=== PATIENT | female | born 1960 | race Caucasian/White ===

== ENCOUNTER 2018-11-01 12:08 | Inpatient (IN) | payer BC ==
[2018-11-01] MEDS ORDERED: NS 500 ML IV ONE (12:23)
--- NOTE | 2018-11-01 12:51 | EDPHY ---
HPI/HX/ROS/PE/MDM Narrative: CHIEF COMPLAINT: Hypotension HPI: The patient is a 58 y/o female with a history of diabetes arriving with her at the referral of her PCP and stem roller operator for evaluation of hypotension. She went to her PCP this morning due to intermittent low blood pressure issues possibly for the last year. While sitting in the waiting room she felt faint and her BP was measured at 60/47. Her PCP scheduled an appointment for her at the stem roller operator's office this afternoon, but the stem roller operator referred her directly to the ED. Her PCP and electronic prepress technician called the ED prior to patient arrival and reported their concerns for adrenal issue and recommend a cosyntropin stimulation test to evaluate for adrenal insufficiency. The patient also mentions she has heartburn pain today that is worse than normal, but she hasn't taken her omeprazole yet. She also mentions she's had occasional diarrhea over the last 2 weeks. REVIEW OF SYSTEMS: A comprehensive 10 system review of systems is otherwise negative aside from elements mentioned in the history of present illness. PMH: Diabetes, reflux - omeprazole SOCIAL HISTORY: at bedside. Lives in [place]. PCP: Dr. Jaime Núñez. PHYSICAL EXAM: General:Patient is alert, in no acute distress. BP 150/88. ENT:Eyes are normal to inspection. ENT inspection normal. Neck: Normal inspection. Full range of motion. Respiratory:No respiratory distress. Breath sounds normal bilaterally. Cardiovascular: Regular rate and rhythm. Strong peripheral pulses. Normal cap refill. Abdomen:The abdomen is nontender to palpation. There are no peritoneal signs. Back: Normal to inspection. No tenderness to palpation. Skin: Normal color. No rash. Warm and dry. Extremities: Normal appearance. Full range of motion. Neuro: Oriented x3. Normal motor function. Normal sensory function. ED Course: This is a 58 y/o female with a history of diabetes and acid reflux who presents for evaluation of hypotension. She reports similar prior episodes over the last year. Her BP has been labile here between 200, 150, and 106 systolic. Plan for IV, labs, EKG. 500mL IV NS ordered. The 12 lead EKG was interpreted by myself. See hard copy and/or "tracemaster" electronic copy for interpretation. Consulted with hospitalist service. Dr. Bell accepts admission. - Data Points Laboratory Results: Laboratory Results 11/01/18 12:40 11/01/18 12:40 11/01/18 11/01/18 11/01/18 12:44 12:40 12:40 WBC 5.99 10^3/uL 10^3/uL (3.80-9.50) RBC 4.61 10^6/uL 10^6/uL (4.18-5.33) Hgb 13.9 g/dL g/dL (12.6-16.3) Hct 41.0 % % (38.0-47.0) MCV 88.9 fL fL (81.5-99.8) MCH 30.2 pg pg (27.9-34.1) MCHC 33.9 g/dL g/dL (32.4-36.7) RDW 12.7 % % (11.5-15.2) Plt Count 170 10^3/uL 10^3/uL (150-400) MPV 11.1 fL fL (8.7-11.7) Neut % (Auto) 72.5 % % (39.3-74.2) Lymph % (Auto) 18.5 % % (15.0-45.0) Haskell % (Auto) 6.3 % % (4.5-13.0) Eos % (Auto) 1.7 % % (0.6-7.6) Baso % (Auto) 0.8 % % (0.3-1.7) Nucleat RBC Rel Count 0.0 % % (0.0-0.2) Absolute Neuts (auto) 4.34 10^3/uL 10^3/uL (1.70-6.50) Absolute Lymphs (auto) 1.11 10^3/uL 10^3/uL (1.00-3.00) Absolute Monos (auto) 0.38 10^3/uL 10^3/uL (0.30-0.80) Absolute Eos (auto) 0.10 10^3/uL 10^3/uL (0.03-0.40) Absolute Basos (auto) 0.05 10^3/uL 10^3/uL (0.02-0.10) Absolute Nucleated RBC 0.00 10^3/uL 10^3/uL (0-0.01) Immature Gran % 0.2 % % (0.0-1.1) Immature Gran # 0.01 10^3/uL 10^3/uL (0.00-0.10) Sodium 134 mEq/L L mEq/L (135-145) Potassium 4.2 mEq/L mEq/L (3.5-5.2) Chloride 102 mEq/L mEq/L (97-110) Carbon Dioxide 24 mEq/l mEq/l (22-31) Anion Gap 8 mEq/L mEq/L (6-14) BUN 20 mg/dL mg/dL (7-23) Creatinine 0.9 mg/dL mg/dL (0.6-1.0) Estimated GFR > 60 Glucose 206 mg/dL H mg/dL (70-100) Calcium 9.4 mg/dL mg/dL (8.5-10.4) POC Troponin I 0.00 ng/mL ng/mL (0.00-0.08) Medications Given: Discontinued Medications Sodium Chloride (Ns) 500 mls @ 1,000 mls/hr IV EDNOW ONE PRN Reason: Protocol Stop: 11/01/18 12:52 Last Admin: 11/01/18 12:39 Dose: 500 mls Point of Care Test Results: Chemistry 11/01/18 12:44 POC Troponin I 0.00 ng/mL ng/mL (0.00-0.08) General Time Seen by Provider: 11/01/18 12:21 Initial Vital Signs: Initial Vital Signs Heart Rate 61 11/01/18 12:08 Respiratory Rate 16 11/01/18 12:08 Blood Pressure 106/51 L 11/01/18 12:08 O2 Sat (%) 94 11/01/18 12:08 O2 Delivery Mode Room Air Allergies/Adverse Reactions: sulfamethoxazole [From Bactrim] Allergy (Intermediate, Verified 11/01/18 12:08) Hives trimethoprim [From Bactrim] Allergy (Intermediate, Verified 11/01/18 12:08) Hives Home Medications: Medication Instructions Recorded Calcium Carb W/Vit D [Calcium Carb 1,000 mg PO DAILY 11/01/18 W/Vit D 500/200 (*)] Esomeprazole Magnesium 40 mg PO DAILY 11/01/18 Insulin Lispro [humALOG LISPRO 100 8 - 18 units SC AC 11/01/18 units/ml (*)] Levothyroxine [Synthroid 125 mcg 125 mcg PO DAILY06 11/01/18 (*)] Quetiapine Fumarate 200 mg PO HS 11/01/18 metFORMIN HCL [Metformin HCl] 1,000 mg PO BIDMEAL 11/01/18 Departure - Departure Disposition: [facility] Inpatient Acute Clinical Impression: Labile hypertension Condition: Fair Report Scribed for: Spencer Holman Report Scribed by: Pooja Franz Date of Report: 11/01/18 Time of Report: 12:52 Physician Review and Approval Statement: Portions of this note were transcribed by an ED scribe. I personally performed the history, physical exam, and medical decision making; and confirm the accuracy of the information in the transcribed note.
[2018-11-01 13:01] LABS: PLATELET COUNT 170 10^3/uL (150-400)
--- NOTE | 2018-11-01 14:40 | CPEKG ---
Test Reason : OPEN Blood Pressure : / mmHG Vent. Rate : 063 BPM Atrial Rate : 063 BPM P-R Int : 241 ms QRS Dur : 082 ms QT Int : 444 ms P-R-T Axes : 073 004 072 degrees QTc Int : 455 ms Sinus rhythm Prolonged MI interval Anteroseptal infarct, age indeterminate Confirmed by Spencer Holman ([id number]) on 11/01/2018 2:40:32 PM Referred By: Confirmed By:Spencer Holman
[2018-11-01] MEDS ORDERED: D50W 25 GM/50 ML SYR IVP PRN (14:41)
[2018-11-01] MEDS ORDERED: ONDANSETRON DISINTEGRATING 4 MG TAB PO PRN (15:10)
[2018-11-01] MEDS ORDERED: HYDROCODONE/APAP 5/325 TAB PO PRN (15:10)
[2018-11-01] MEDS ORDERED: ONDANSETRON 4 MG/2 ML VIAL IVP PRN (15:10)
[2018-11-01] MEDS ORDERED: ACETAMINOPHEN 325 MG TAB PO PRN (15:10)
--- NOTE | 2018-11-01 15:51 | PDGENHP ---
History and Physical - Chief Complaint labile bp - History of Present Illness The patient is a 58 y/o female with a history of diabetes arriving with her at the referral of her PCP and coach for evaluation of hypotension. She went to her PCP this morning due to intermittent low blood pressure issues possibly for the last year. While sitting in the waiting room she felt faint and her BP was measured at 60/47. Her PCP scheduled an appointment for her at the coach's office this afternoon, but the coach referred her directly to the ED. Her PCP and ice cream vault worker called the ED prior to patient arrival and reported their concerns for adrenal issue and recommend a cosyntropin stimulation test to evaluate for adrenal insufficiency. Pt reports a hx of DM x 40 years. Her glucose is well controlled She also reports hypotension and labile BP for several years, dating back to at least 2014 at which time she saw Dr. Burgess for evaluation at this office. no cp or sob. no palpitations. no leg swelling. afebrile. PMH: Diabetes, reflux - omeprazole SOCIAL HISTORY: at bedside. Lives in [place]. PCP: Dr. Jaime Núñez. FmHx: non contributory History Information - Allergies/Home Medication List Allergies/Adverse Reactions: sulfamethoxazole [From Bactrim] Allergy (Intermediate, Verified 11/01/18 12:08) Hives trimethoprim [From Bactrim] Allergy (Intermediate, Verified 11/01/18 12:08) Hives Home Medications: Calcium Carb W/Vit D [Calcium Carb W/Vit D 500/200 (*)] 1,000 mg PO DAILY [Last Taken Unknown] Esomeprazole Magnesium 40 mg PO DAILY 11/01/18 [Last Taken Unknown] Insulin Lispro [humALOG LISPRO 100 units/ml (*)] 8 - 18 units SC AC 11/01/18 [ Last Taken Unknown] Levothyroxine [Synthroid 125 mcg (*)] 125 mcg PO DAILY06 11/01/18 [Last Taken Unknown] Quetiapine Fumarate 200 mg PO HS 11/01/18 [Last Taken Unknown] metFORMIN HCL [Metformin HCl] 1,000 mg PO BIDMEAL 11/01/18 [Last Taken Unknown] I have personally reviewed and updated: medical history, social history - Social History Smoking Status: Former smoker Review of Systems Review of Systems: ROS: 10pt was reviewed & negative except for what was stated in HPI & below Physical Exam Physical Exam: Temp Pulse Resp BP Pulse Ox 36.4 C 64 18 148/88 H 98 11/01/18 15:11 11/01/18 15:11 11/01/18 15:11 11/01/18 15:11 11/01/18 15:11 Constitutional: no apparent distress Eyes: PERRL, EOMI Ears, Nose, Mouth, Throat: moist mucous membranes, hearing normal Cardiovascular: regular rate and rhythym Respiratory: no respiratory distress, no rales or rhonchi, clear to auscultation Gastrointestinal: normoactive bowel sounds, soft, non-tender abdomen Skin: warm Neurologic: AAOx3 Psychiatric: interacting appropriately, not anxious, not encephalopathic Lymph, Heme, Immunologic: No petechiae Lab Data & Imaging Review 11/01/18 12:40 11/01/18 12:40 WBC 5.99 10^3/uL (3.80-9.50) 11/01/18 12:40 RBC 4.61 10^6/uL (4.18-5.33) 11/01/18 12:40 Hgb 13.9 g/dL (12.6-16.3) 11/01/18 12:40 Hct 41.0 % (38.0-47.0) 11/01/18 12:40 MCV 88.9 fL (81.5-99.8) 11/01/18 12:40 MCH 30.2 pg (27.9-34.1) 11/01/18 12:40 MCHC 33.9 g/dL (32.4-36.7) 11/01/18 12:40 RDW 12.7 % (11.5-15.2) 11/01/18 12:40 Plt Count 170 10^3/uL (150-400) 11/01/18 12:40 MPV 11.1 fL (8.7-11.7) 11/01/18 12:40 Neut % (Auto) 72.5 % (39.3-74.2) 11/01/18 12:40 Lymph % (Auto) 18.5 % (15.0-45.0) 11/01/18 12:40 Rhea % (Auto) 6.3 % (4.5-13.0) 11/01/18 12:40 Eos % (Auto) 1.7 % (0.6-7.6) 11/01/18 12:40 Baso % (Auto) 0.8 % (0.3-1.7) 11/01/18 12:40 Nucleat RBC Rel Count 0.0 % (0.0-0.2) 11/01/18 12:40 Absolute Neuts (auto) 4.34 10^3/uL (1.70-6.50) 11/01/18 12:40 Absolute Lymphs (auto) 1.11 10^3/uL (1.00-3.00) 11/01/18 12:40 Absolute Monos (auto) 0.38 10^3/uL (0.30-0.80) 11/01/18 12:40 Absolute Eos (auto) 0.10 10^3/uL (0.03-0.40) 11/01/18 12:40 Absolute Basos (auto) 0.05 10^3/uL (0.02-0.10) 11/01/18 12:40 Absolute Nucleated RBC 0.00 10^3/uL (0-0.01) 11/01/18 12:40 Immature Gran % 0.2 % (0.0-1.1) 11/01/18 12:40 Immature Gran # 0.01 10^3/uL (0.00-0.10) 11/01/18 12:40 Sodium 134 mEq/L (135-145) L 11/01/18 12:40 Potassium 4.2 mEq/L (3.5-5.2) 11/01/18 12:40 Chloride 102 mEq/L (97-110) 11/01/18 12:40 Carbon Dioxide 24 mEq/l (22-31) 11/01/18 12:40 Anion Gap 8 mEq/L (6-14) 11/01/18 12:40 BUN 20 mg/dL (7-23) 11/01/18 12:40 Creatinine 0.9 mg/dL (0.6-1.0) 11/01/18 12:40 Estimated GFR > 60 11/01/18 12:40 Glucose 206 mg/dL (70-100) H 11/01/18 12:40 Calcium 9.4 mg/dL (8.5-10.4) 11/01/18 12:40 POC Troponin I 0.00 ng/mL (0.00-0.08) 11/01/18 12:44 Assessment & Plan Assessment: #Labile hypertension, Hypotension #Long standing IDDM, over 40 years #Hypothyroidism #GERD Plan: Etiology is unclear. Does not sound cardiac in nature. Suspect that she has underlying autonomic insufficiency due to long standing diabetes. Will r/o adrenal insufficiency with seble stim test tomorrow. Check TTE cont home meds Check TSH, A1C ISS SCD's
[2018-11-01] MEDS ORDERED: PANTOPRAZOLE SODIUM 40 MG TAB PO SCH (16:30)
--- NOTE | 2018-11-01 16:45 | ECHO ---
[email or web address] [address] [address] Main: [phone] Fax: Transthoracic Echocardiogram Name: ASHLEY SALINAS MR#: [id number] Study Date: 11/01/2018 Study Time: 03:59 PM Date of : 1960 Age: 58 year(s) Height: 188 cm (74 in.) Weight: 99.34 kg (219 lb.) BSA: 2.26 m2 Gender: Female Examination: Echo Indication: Hypotension, Diabeties Image Quality: Contrast: Requested by: Rudolph Bell BP: 148 mmHg/88 mmHg Heart Rate: Rhythm: Sinus bradycardia Indication: Hypotension, Diabeties Procedure Staff Nursing Techn: Kirk Arnett RDCS Reading Physician: Erasmo Escalera MD Requesting Provider: Conclusions: Normal size left ventricle. No LV hypertrophy. Normal global systolic LV function. EF is 82 %. No regional wall motion abnormality. Normal size right ventricle. The left atrium is normal in size. The right atrium is normal in size. The mitral valve is normal in appearance. There is no significant mitral valve regurgitation. The aortic valve is tri-leaflet and functions normally. The aortic valve is tri-leaflet. There is no significant aortic valve regurgitation. The tricuspid valve is normal in appearance and function. There is no significant tricuspid valve regurgitation. The pulmonary artery pressure is normal. The pulmonic valve is normal in appearance and function. There is no pulmonic regurgitation seen. The aorta is normal. There is a small posterior pericardial effusion with no evidence of tamponade.. The blood pressure in the ER was 60/47. A cause for the patient's severe hypotension is not identified on the basis of this study. Measurements: Chambers Valvular Assessment AV/MV Valvular Assessment TV/PV Normal Normal Normal Name Value Range Name Value Range Name Value Range Ao Kalina (MM): 3.0 cm (2.2 cm-3.7 AV Vmax: 1.14 m/s (1 m/s-1.7 PV Vmax: 0.66 m/s (0.6 m/s-0.9 cm) m/s) m/s) Patient: ASHLEY SALINAS Study Date: 11/01/2018 Page 1 of 2 03:59 PM IVSd (2D): 1.0 cm (0.6 cm-1.1 AV maxP mmHg ( - ) PV PGmax: 2 mmHg ( - ) cm) LVOT Vmax: 0.68 m/s (0.7 m/s-1.1 LVDd (2D): 4.5 cm (3.9 cm-5.3 m/s) cm) MV E Vmax: 0.84 m/s ( - ) LVDs (2D): 2.2 cm (2.1 cm-4 MV A Vmax: 0.53 m/s ( - ) cm) MV E/A: 1.58 ( - ) LVPWd (2D): 1.0 cm ( - ) LVEF (2D): 82 (>=54 %) Continued Measurements: Chambers Valvular Assessment AV/MV Name Value Name Value LADs Lon.7 cm MV E' Septal: 0.07 m/s LA Area: 15.3 cm2 MV E/E' Septal: 11.30 LA Volume: 44 ml MV E/E' Lateral: 10.40 LA Volume Index: 19.5 ml/m2 Findings: Left Ventricle: Normal size left ventricle. No LV hypertrophy. Normal global systolic LV function. EF is 82 %. No regional wall motion abnormality. Right Ventricle: Normal size right ventricle. Left Atrium: The left atrium is normal in size. Right Atrium: The right atrium is normal in size. Mitral Valve: The mitral valve is normal in appearance. There is no significant mitral valve regurgitation. Aortic Valve: The aortic valve is tri-leaflet and functions normally. The aortic valve is tri-leaflet. There is no significant aortic valve regurgitation. Tricuspid Valve: The tricuspid valve is normal in appearance and function. There is no significant tricuspid valve regurgitation. The pulmonary artery pressure is normal. Pulmonic Valve: The pulmonic valve is normal in appearance and function. There is no pulmonic regurgitation seen. Aorta: The aorta is normal. Pericardium: There is a small posterior pericardial effusion with no evidence of tamponade.. Exam Comments: The blood pressure in the ER was 60/47. (No Signature Object) Patient: ASHLEY SALINAS Study Date: 11/01/2018 Page 2 of 2 03:59 PM [id number]
[2018-11-01] MEDS: INSULIN LISPRO 100 UNIT/ML SC SCH (19:15)
[2018-11-01] MEDS: QUEtiapine FUMARATE 200 MG TAB PO SCH (20:29)
[2018-11-02] MEDS: LEVOTHYROXINE 125 MCG TAB PO SCH (04:31)
[2018-11-02] MEDS ORDERED: COSYNTROPIN 0.25 MG/2 ML SYRINGE IVP ONE (06:00)
[2018-11-02] MEDS: INSULIN LISPRO 100 UNIT/ML SC SCH ×2 (08:04→12:23)
[2018-11-02] MEDS: CALCIUM CARB W/VIT D 500 MG TAB PO SCH (10:04)
[2018-11-02] MEDS: PANTOPRAZOLE SODIUM 40 MG TAB PO SCH (10:04)
[2018-11-02] MEDS ORDERED: FLUDROCORTISONE ACETATE 0.1 MG TAB PO SCH (10:15)
--- NOTE | 2018-11-02 15:20 | HOSPPROG ---
Hospitalist Progress Note Assessment/Plan: # bradycardia/hypotension with Mobitz I block, 1st degree AV block - likely vagal mediated as bradycardia resolved with burping - needs ischemic eval - defer to cards on angio vs stress # GERD, gastric inflammation - consider GI eval as this is likely the underlying issue - cont protonix # DM1 - insulin # hypothyroid - synthroid Subjective: patient had a repeat episode where she was found to be hypotensive and bradycardic on telemetry. She also had left-sided neck pressure prior to this. Objective: Vital Signs Temp Pulse Resp BP Pulse Ox 36.7 C 64 19 158/101 H 97 11/02/18 11:57 11/02/18 11:57 11/02/18 11:57 11/02/18 11:57 11/02/18 11:57 11/01/18 11/02/18 11/03/18 05:59 05:59 05:59 Intake Total 500 Balance 500 chart reviewed discussed with Dr Bain ECG personally reviewed - Time Spent With Patient Time Spent with Patient: greater than 35 minutes Time Spent with Patient: Greater than 35 minutes spent on this patients care, greater than 50% of time spent counseling, educating, and coordinating care regarding the above mentioned plan. - Physical Exam Constitutional: uncomfortable Cardiovascular: no murmur, rub, or gallop, bradycardia Respiratory: no respiratory distress, no rales or rhonchi Gastrointestinal: normoactive bowel sounds, soft, non-tender abdomen, no palpable masses ICD10 Worksheet Patient Problems: Problems Problem Status Onset Labile hypertension Acute
--- NOTE | 2018-11-02 16:19 | PDMN ---
Medical Necessity Medical necessity: Change to inpt as of 11/02/18 @ 1515 per MD order and MCG M- 510, Supraventricular Arrhythmias. 58 y/o w/hx IDDM admitted w/labile BP, upgraded to inpt status for persistent labile BP(89/53-160/84 and symptomatic episode of bradycardia HR down to 37 w/Mobitz I block/1st degree AV block, needs ischemic eval, cardiology consult pending, GERD-gastric inflammation, may need GI eval as this ay be underlying issue. Est LOS>2MN for ongoiong eval/ management of above.
[2018-11-02] MEDS ORDERED: IBUPROFEN 200 MG TAB PO PRN (16:58)
[2018-11-02] MEDS ORDERED: ATROPINE SULFATE 1 MG/10 ML SYR ONE (23:09)
[2018-11-02] MEDS: QUEtiapine FUMARATE 200 MG TAB PO SCH (23:43)
[2018-11-03] MEDS: INSULIN LISPRO 100 UNIT/ML SC SCH ×4 (00:29→17:38)
[2018-11-03] MEDS: PANTOPRAZOLE SODIUM 40 MG TAB PO SCH (08:00)
[2018-11-03] MEDS: CALCIUM CARB W/VIT D 500 MG TAB PO SCH (08:09)
[2018-11-03] MEDS: LEVOTHYROXINE 125 MCG TAB PO SCH (08:58)
--- NOTE | 2018-11-03 09:51 | PDCARCONS ---
Cardiology Consult Reason for Consult: Labile blood pressures Chief Complaint: Malaise and feeling faint Requesting Physician: Hospitalist Team History of Present Illness: Patient is a 58 y/o female with history of long standing DM (A1C of about 7%), hypothyroidism, and GERD, who presents to ER at [facility] after hypotensive event at PCP office two days prior. Patient was last seen by cardiology (Dr. Moan Burgess ) in 2014 after stress testing and echocardiography (both of which were grossly normal). There was some discussion given bradycardic events, about a 30 day monitor, but she has not been seen by cardiology for follow up since the aforementioned testing. Two days prior, the patient was in PCP office to establish new following, when she felt faint. Blood pressure at that time was noted to be 60/47 mm Hg (per reports). There was an attempt to get the patient over to cardiology, but cardiology with recommendations for patient to go to the ER for assessment. Both PCP and endocrinology with call to the ER prior to her arrival with concerns about "adrenal issues". Ongoing work with GI given GERD symptoms as well. Today, the patient is feeling reasonably well. Last night, on telemetry, the patient had a bout of second degree type I AVB (on top of her underlying first degree AVB). No lawrence symptoms were noted with this arrhythmia. There has also been dramatic bradycardia noted around the hypotensive events. A dose of florinef was given yesterday without appreciable, long lasting effects noted. No cardiovascular complaints of chest pain or pressure today, but the patient has noted some left sided discomfort with neck and shoulder involvement appreciated. As mentioned above, MPI testing about three years ago without evidence of critical CAD noted. Remainder of the 12 point review of systems has been unremarkable. The patient does sound like she has both neuropathy and some degree of retinopathy. Gastroparesis has not been a term the patient is familiar with (GI has not specifically reported this being noted to the patient). History Information - Allergies/Home Medication List Allergies/Adverse Reactions: sulfamethoxazole [From Bactrim] Allergy (Intermediate, Verified 11/01/18 12:08) Hives trimethoprim [From Bactrim] Allergy (Intermediate, Verified 11/01/18 12:08) Hives Home Medications: Calcium Carb W/Vit D [Calcium Carb W/Vit D 500/200 (*)] 1,000 mg PO DAILY [Last Taken Unknown] Esomeprazole Magnesium 40 mg PO DAILY 11/01/18 [Last Taken Unknown] Insulin Lispro [humALOG LISPRO 100 units/ml (*)] 8 - 18 units SC AC 11/01/18 [ Last Taken Unknown] Levothyroxine [Synthroid 125 mcg (*)] 125 mcg PO DAILY06 11/01/18 [Last Taken Unknown] Quetiapine Fumarate 200 mg PO HS 11/01/18 [Last Taken Unknown] metFORMIN HCL [Metformin HCl] 1,000 mg PO BIDMEAL 11/01/18 [Last Taken Unknown] I have personally reviewed and updated: family history, medical history, social history, surgical history Past Medical History: - Past Medical History diabetes type 1, GERD - Surgical History Reports: no pertinent surgical hx - Family History Positive for: non-pertinent - Social History Smoking Status: Former smoker Alcohol Use: None Drug Use: None Cardiac History - Cardiac History Cardiac Risk Factors: hypertension (>140/90), diabetes mellitus Timing/Duration: Days Severity: mild Severity Scale: 2 Location: shoulder Activities at Onset: none Modifying Factors: improves with: antacids Physical Exam Physical Exam: Temp Pulse Resp BP Pulse Ox 36.7 C 79 17 157/95 H 97 11/03/18 07:51 11/03/18 07:51 11/03/18 07:51 11/03/18 07:51 11/03/18 07:51 O2 (L/minute) 2 Constitutional: no apparent distress, appears nourished, not in pain Eyes: PERRL, EOMI Ears, Nose, Mouth, Throat: moist mucous membranes, hearing normal, ears appear normal Cardiovascular: regular rate and rhythym, pulses symmetric bilaterally, No JVD, No edema Peripheral Pulses: 2+: dorsalis-pedis (R), dorsalis-pedis (L) Respiratory: no respiratory distress, no rales or rhonchi, clear to auscultation Gastrointestinal: normoactive bowel sounds Skin: warm Musculoskeletal: full muscle strength, no muscle tenderness, normal joint ROM Neurologic: AAOx3, sensation intact bilaterally, CN II-XII Intact Psychiatric: interacting appropriately, not anxious, not encephalopathic Lab and Imaging 11/01/18 12:40 11/01/18 12:40 WBC 5.99 10^3/uL (3.80-9.50) 11/01/18 12:40 RBC 4.61 10^6/uL (4.18-5.33) 11/01/18 12:40 Hgb 13.9 g/dL (12.6-16.3) 11/01/18 12:40 Hct 41.0 % (38.0-47.0) 11/01/18 12:40 MCV 88.9 fL (81.5-99.8) 11/01/18 12:40 MCH 30.2 pg (27.9-34.1) 11/01/18 12:40 MCHC 33.9 g/dL (32.4-36.7) 11/01/18 12:40 RDW 12.7 % (11.5-15.2) 11/01/18 12:40 Plt Count 170 10^3/uL (150-400) 11/01/18 12:40 MPV 11.1 fL (8.7-11.7) 11/01/18 12:40 Neut % (Auto) 72.5 % (39.3-74.2) 11/01/18 12:40 Lymph % (Auto) 18.5 % (15.0-45.0) 11/01/18 12:40 Pierce % (Auto) 6.3 % (4.5-13.0) 11/01/18 12:40 Eos % (Auto) 1.7 % (0.6-7.6) 11/01/18 12:40 Baso % (Auto) 0.8 % (0.3-1.7) 11/01/18 12:40 Nucleat RBC Rel Count 0.0 % (0.0-0.2) 11/01/18 12:40 Absolute Neuts (auto) 4.34 10^3/uL (1.70-6.50) 11/01/18 12:40 Absolute Lymphs (auto) 1.11 10^3/uL (1.00-3.00) 11/01/18 12:40 Absolute Monos (auto) 0.38 10^3/uL (0.30-0.80) 11/01/18 12:40 Absolute Eos (auto) 0.10 10^3/uL (0.03-0.40) 11/01/18 12:40 Absolute Basos (auto) 0.05 10^3/uL (0.02-0.10) 11/01/18 12:40 Absolute Nucleated RBC 0.00 10^3/uL (0-0.01) 11/01/18 12:40 Immature Gran % 0.2 % (0.0-1.1) 11/01/18 12:40 Immature Gran # 0.01 10^3/uL (0.00-0.10) 11/01/18 12:40 Sodium 134 mEq/L (135-145) L 11/01/18 12:40 Potassium 4.2 mEq/L (3.5-5.2) 11/01/18 12:40 Chloride 102 mEq/L (97-110) 11/01/18 12:40 Carbon Dioxide 24 mEq/l (22-31) 11/01/18 12:40 Anion Gap 8 mEq/L (6-14) 11/01/18 12:40 BUN 20 mg/dL (7-23) 11/01/18 12:40 Creatinine 0.9 mg/dL (0.6-1.0) 11/01/18 12:40 Estimated GFR > 60 11/01/18 12:40 Glucose 206 mg/dL (70-100) H 11/01/18 12:40 POC Glucose 298 mg/dL (70-100) H 11/03/18 07:14 Hemoglobin A1c 7.7 % (4.0-6.0) H 11/01/18 12:40 Estim Average Glucose 174 mg/dL (68-126) H 11/01/18 12:40 Calcium 9.4 mg/dL (8.5-10.4) 11/01/18 12:40 POC Troponin I 0.00 ng/mL (0.00-0.08) 11/01/18 12:44 Troponin I < 0.012 ng/mL (0.000-0.034) 11/03/18 00:01 TSH 2.740 uIU/mL (0.465-4.680) 11/01/18 12:40 Cortisol AM Sample 21.1 ug/dL (4.5-22.7) 11/02/18 05:30 Visualized and Interpreted EKG results: Yes EKG Interpretation: Positive for: normal sinsus rhythm, other (first degree AVB) EKG additional interpertation: An episode of second degree AVB (type I) was captured last night Telemetry: normal sinus rhythm Echocardiogram: normal LVEF, no clear valve pathology was noted. A/P Assessment: Patient is a 58 y/o female with history of type I DM (with associated neuropathy and retinopathy), GERD (no gastroparesis has been mentioned), and hypothyroidism, who was admitted to [facility] after hypotensive event was noted in PCP office. Further history of similar events being noted on semi regular basis. Outpatient cardiology note from 2014 with similar findings noted at that time (moreso with reports of bradycardic events). The hypotension and bradycardia are noted nearly once per week (according to the patient). No lawrence syncope has been noted of recent. Stress testing in past without ischaemia. Recent echo with normal systolic function and no clear valve pathology noted. Cardiology had mentioned consideration for 30 day event monitor in the past, but given a lack of symptoms (until recent), this testing was not performed. Concerns about autonomic dysfunction as possible etiology for the events noted. Plan: Would arrange for patient to have MPI (ash[place]) when able to ensure that with her DM there has not been a rapid acceleration of CAD to precipitate some of the signs/symptoms noted. Would arrange for 30 day [employer] monitor for better assessment of rate/ rhythm events Maintain follow up with GI as scheduled (there is ongoing work with GI given her severe GERD) Compression hose are recommended for some assistance with the hypotensive episodes that have been noted
--- NOTE | 2018-11-03 11:19 | HOSPPROG ---
Hospitalist Progress Note Assessment/Plan: # bradycardia/hypotension with Mobitz I block, 1st degree AV block - likely vagal mediated as bradycardia resolved with burping - plan nuc stress today per cards - ppm considered, not clearly a candidate # GERD, gastric inflammation - dr bedolla will consult, consider gastroparesis - cont protonix # DM1 - insulin # hypothyroid - synthroid Subjective: as I am seeing her, complains of GERD; no additional episodes last night; seen with many family members Objective: Vital Signs Temp Pulse Resp BP Pulse Ox 36.7 C 79 17 157/95 H 97 11/03/18 07:51 11/03/18 07:51 11/03/18 07:51 11/03/18 07:51 11/03/18 07:51 11/02/18 11/03/18 11/04/18 05:59 05:59 05:59 Intake Total 350 Balance 350 tele personally reviewed discussed with dr bedolla - Physical Exam Constitutional: no apparent distress, appears nourished Cardiovascular: regular rate and rhythym, no murmur, rub, or gallop Respiratory: no respiratory distress, no rales or rhonchi, clear to auscultation Gastrointestinal: normoactive bowel sounds, soft, non-tender abdomen, no palpable masses ICD10 Worksheet Patient Problems: Problems Problem Status Onset Labile hypertension Acute
--- NOTE | 2018-11-03 13:58 | ASMTCMCOM ---
CM Note CM Note Notes: 11/03/2018 Case Management Note Pt admitted for bradycardia/hypotension with Mobitz I block, 1st degree AV block, GERD, DM1, and hypothyroid. Lexiscan stress test has been ordered. There are no therapy evals ordered at this time. There are no case management d/c needs identified d/t pt age, marital status, employment status and independence with ADLs. Case Management d/c poc: Independent with follow up as directed. Case Management available if needs change. Date Signed: 11/03/2018 01:58 PM Electronically Signed By:Rosemarie Lombardi RN
--- NOTE | 2018-11-03 14:55 | GCON ---
DATE OF CONSULTATION: 11/03/2018 CHIEF COMPLAINT: Abdominal pain. HPI: I am asked to see this patient in consultation by Dr. Tong for chief complaint of abdominal pain and vasovagal. The patient is a pleasant 58-year-old whom I have seen previously for GERD sympt oms with intermittent dysphagia. She underwent upper endoscopy on 09/02/2018, that showed changes foreman ggestive of eosinophilic esophagitis. However, biopsies were negative. She had some mild erythema i n the duodenum. Biopsies were negative for H pylori or gastritis. She was placed on Nexium, which china garnett has mostly helped with her GERD symptoms, although she is noting some diarrhea. She then had issues with feeling dizzy and faint while seen at her doctor's office, was noted to have probably a v asovagal reaction with decreased heart rate and hypotension, and then was admitted for further evalua tion. The patient has occasional discomfort. She feels more epigastric or chest pain that she attri butes to GERD that occurs only occasionally if she eats something that may trigger the symptoms. Rec ently was associated with eating some salami. However, she does not have any lower abdominal pain. No significant gas or bloat. Does get some belching. It was thought that while in the hospital, her heart rate did drop when she was having some belching. The patient does occasionally get nausea and vomiting and early satiety. She has had diabetes for over 40 years. She is undergoing a cardiac ev aluation. However, in general, she does not note any significant abdominal pain or bloating before t hese episodes of low heart rate or low blood pressure. ALLERGIES: The patient is allergic to sulfa. CURRENT MEDICATIONS: On admission include Synthroid, insulin, metformin, Nexium, and vitamins. PAST MEDICAL HISTORY: Notable for diabetes mellitus, nonerosive GERD. FAMILY HISTORY: Mother of colon cancer at age 78. SOCIAL HISTORY: She drinks alcohol with wine about 3 times per week. REVIEW OF SYSTEMS: I performed a complete review of systems which is negative except for the pertine nt positives, negatives noted above in the HPI. PHYSICAL EXAM: VITAL SIGNS: Afebrile at 36.6, BP currently 133/88, pulse 68. CONSTITUTIONAL: She i s alert and oriented. EYES: No scleral icterus. HENT: No oral lesions. CARDIOVASCULAR: Regular r hythm. CHEST: Clear to auscultation. ABDOMEN: Soft, nontender. No hepatosplenomegaly. NEUROLOGI C: Nonfocal. SKIN: No rashes. LABORATORY DATA: Hematocrit normal at 41. ASSESSMENT: 1. Patient with nonerosive gastroesophageal reflux disease on Nexium, although this likely is causin g diarrhea. She has been switched to pantoprazole, which she initially thought was better, but then may have had some diarrhea today from that. 2. Hypotension with low heart rate with concern of possible vasovagal reaction or some underlying au tonomic dysfunction. Given patient does have long history of diabetes, she may be at risk for gastro paresis. It was observed in the hospital that she had low heart rates before belching, so unclear if this may be contributing to a vasovagal reaction. The patient, however, does not have the classic s ignificant abdominal pain, sweating, or nauseousness just before her heart rate drops so not a clear picture. PLAN: 1. I would suggest a formal gastric emptying test at some point. The [facility] so may postpone this, and this could be done as an outpatient. 2. Will monitor on pantoprazole, although if she continues to have diarrhea, then we may need to swi tch to an H2 hortencia in place of a PPI. Will follow tomorrow. Thank you for this consult. /[id number]/MODL
[2018-11-03] MEDS: QUEtiapine FUMARATE 200 MG TAB PO SCH (21:04)
[2018-11-04] MEDS: LEVOTHYROXINE 125 MCG TAB PO SCH (05:45)
[2018-11-04] MEDS: CALCIUM CARB W/VIT D 500 MG TAB PO SCH (09:33)
[2018-11-04] MEDS: INSULIN LISPRO 100 UNIT/ML SC SCH ×2 (09:33→13:24)
[2018-11-04] MEDS: PANTOPRAZOLE SODIUM 40 MG TAB PO SCH (09:33)
--- NOTE | 2018-11-04 10:31 | SOAPPROG ---
SOAP Progress Note Assessment/Plan: Assessment: Bradycardia atypical for vasovagal suspect Non erosive DORIAN with diarrhea on PPIs Plan: D/C PPI due to diarrhea Begin ranitidine 150 BID Plan for outpatient gastric emptying test (can not do for next 2 days due to nuclear stress test) Will sign off 11/04/18 10:28 Subjective: CC belching bradycardia Pt with some lower gas today but with out hypotension Objective: Vital Signs Temp Pulse Resp BP Pulse Ox 36.6 C 71 18 168/91 H 96 11/04/18 07:50 11/04/18 07:50 11/04/18 07:50 11/04/18 07:50 11/04/18 07:50 11/03/18 11/04/18 11/05/18 05:59 05:59 05:59 Intake Total 350 1630 Balance 350 1630 Physical Exam - Physical Exam General Appearance: no apparent distress Respiratory: lungs clear Cardiac/Chest: regular rate, rhythm Abdomen: non-tender, soft ICD10 Worksheet Patient Problems: Problems Problem Status Onset Labile hypertension Acute
[2018-11-04] MEDS ORDERED: REGADENOSON 0.4 MG/5 ML SYR IVP ONE (10:49)
[2018-11-04] MEDS ORDERED: ATROPINE SULFATE 1 MG/10 ML SYR ONE (11:27)
--- NOTE | 2018-11-04 12:10 | CPR ---
PROCEDURE PERFORMED: Lexiscan injection of Lexiscan MPI study. INDICATION FOR PROCEDURE: Hypotension, multiple cardiac risk factors. PRE: After obtaining informed consent, patient was placed on electrocardiogram. Initial EKG showed sinus bradycardia with ventricular rate at 51 beats per minute, normal axis, no significant Q-waves n oted in V1 and V2, questioning anterior septal infarction, old. Initial blood pressure was 84/60 satu ration 92%. Prior to testing, blood pressure was repeated, with blood pressure at 100/58, heart rate was 66, saturation 97%. The patient was reporting no chest pain, pressure or symptoms suggesting of ischemia. INJECTION: Patient was given Lexiscan slow IV push, followed by nuclear isotope. She did report dinorah e mild shortness of breath after injection, but dissipated within 3 minutes. No significant EKG iglesias ges, throughout testing, oxygen saturation remained stable in the high 90s. Within 5 minutes post in jection, she reported all symptoms subsided. Final blood pressure was 102/58, heart rate of 75 satura tion 96%. IMPRESSION: 58-year-old female with ongoing episodes of lightheadedness and noted to be hypotensive being evaluated for cardiac ischemia. Did note some mild shortness of breath post injection which dis sipated with time. No significant EKG changes. Patient was noted initially showing up with bradycar paul with ventricular rate in the 50s, blood pressure of 84/60, but repeated within 3-5 minutes, blood pressure up to 100/50. The patient will finish poststress imaging in Nuclear Medicine at this time. /[id number]/MODL
[2018-11-04] MEDS ORDERED: INSULIN PUMP, PATIENT OWN 1 EA MISC SCH (13:15)
[2018-11-04] MEDS ORDERED: NON-FORMULARY NEW DRUG (Insulin Pump, Patient Own 1 EA) MISC SCH (13:15)
--- NOTE | 2018-11-04 13:22 | PDCARPN ---
Cardiology Progress Note Chief Complaint: Patient continues to have episodes of lightheadedness. Assessment/Plan: Assessment: 58-year-old female with significant past history that includes diabetes, hypothyroidism, GERD, and obesity. Admitted on 11/01/2018 directly from PCPs office due to noted episodes of hypotension with associated symptoms of lightheadedness, no syncope per patient. Episodes have been happening for multiple years, feels that it gradually worsening over the last few weeks. Noting at least once or twice a week. Echocardiogram done on 11/01/2018 noting normal LV systolic function, EF 82%, no wall motion abnormalities, no significant valvular heart disease, normal pulmonary pressures. Small posterior pericardial effusion with no evidence of tap non. 12 lead EKG done on admission noting sinus rhythm with first-degree AV block, Q-waves noted in V1 and V2 questioning old anterior septal infarction. Laboratories have noted no significant abnormalities, cortisone level with cosyntropin administration within normal limits. Continues cardiac monitoring showing sinus rhythm with first-degree AV block, was noted 2 days ago of 2 brief episodes of second- degree heart block type 2, less than 1-2 beats, with no significant pauses. 11/04/2018: Patient reports episodes of lightheadedness this morning. Noted initially to be hypertensive, during my examination with complaints of lightheadedness, heart rate remained at 60 BPM, sinus rhythm, with no pauses. Systolic blood pressure down to 90s. MPI study results showed normal LV EF, with inferior lateral perfusion deficit more prominent with stress than rest, suspicious for of ischemia. She reports no chest pressure or pain, denies of any shortness of breath. Plan: 1. Bradycardia/hypotension: Patient has been noted to have no significant pauses. Mild Isaac heart rates (sinus) in the 50s and 60s, with noted to have systolic blood pressures in the 90s with associated symptoms of lightheadedness. Noted isolated episode of second-degree heart block type 2, patient was asymptomatic. Patient does state with episodes of hypotension, she does developing left arm pain. Usually subsides within a few minutes. Cardiac MPI workup have found ischemia on imaging. Significant cardiac risk factors of diabetes, age, hypertension. Will plan on doing coronary angiogram in the morning, risks and benefits of procedure discussed with patient and , they verbalize understanding and are wanting to proceed. Will check fasting lipid panel in a.m.. Uncertain if ischemia is truly cause of her symptoms, potentially also could be inappropriate vasomotor on on a response. Continue on cardiac monitoring. Currently no indication for ppm. If cardiac catheterization is negative, consideration of sending patient home on 30 day monitor, and asking neurology to see. 2. Diabetes type 1: Defer to hospitalist Medicine for management. 3. Hypothyroidism: On Synthroid. 11/04/18 13:22 Subjective: She denies of any chest pressure, pain, shortness of breath. She does state when she has episodes of lightheadedness, she develops occasional left arm pain and numbness. Denies of any nausea or diaphoresis. Reviewed/Discussed With: hospitalist (Dr Jarquin), other (Dr Islas) Objective: Vital Signs (8 Hrs) Temp Pulse Resp BP Pulse Ox 11/04/18 12:00 36.6 C 72 18 158/90 H 93 11/04/18 07:50 36.6 C 71 18 168/91 H 96 Intake/Output (24 Hrs) 11/03/18 11/04/18 11/05/18 05:59 05:59 05:59 Intake Total 350 1630 Balance 350 1630 Intake: Oral (ml) 350 1630 Other: Intake Quantity Yes Sufficient Number of Voids Toilet 4 1 Number of Stools Toilet 3 Result Diagrams: 11/01/18 12:40 11/01/18 12:40 Cardiac Labs: Cardiac Lab Results (72 Hrs) 11/03/18 11/02/18 00:01 18:18 Troponin I < 0.012 < 0.012 - Physical Exam Constitutional: WDWN, no apparent distress Ears, Nose, Mouth, Throat: moist mucous membranes Cardiovascular: regular rate and rhythm, no murmurs, no rubs, pulses symmetric bilat, No jugular vein distention Peripheral Pulses: 1+: dorsalis-pedis (R), dorsalis-pedis (L), 2+: carotid (R), carotid (L) Respiratory: clear to auscultate bilat, no crackles, no wheezes Gastrointestinal: normoactive bowel sounds, no tenderness Skin: warm, no edema Neurologic: AAOx3 Psychiatric: cooperative, interactive, following commands ICD10 Worksheet Patient Problems: Problems Problem Status Onset Labile hypertension Acute
--- NOTE | 2018-11-04 14:31 | HOSPPROG ---
Hospitalist Progress Note Assessment/Plan: # bradycardia/hypotension with isolated episodes of Mobitz I block, ongoing 1st degree AV block - abnormal nuc stress test with suspicion for ischemia on resting images. -discussed with cards, angiogram in am # GERD - not tolerating PPI with diarrhea -change to H2 hortencia therapy -outpt gastric emptying study # DM1 - insulin # hypothyroid - synthroid # full code # dispo - cont inpt Subjective: Pt feels ok today. No dizziness, CP or SOB. BP has been stable. Objective: Vital Signs Temp Pulse Resp BP Pulse Ox 36.6 C 72 18 158/90 H 93 11/04/18 12:00 11/04/18 12:00 11/04/18 12:00 11/04/18 12:00 11/04/18 12:00 11/03/18 11/04/18 11/05/18 05:59 05:59 05:59 Intake Total 350 1630 Balance 350 1630 - Physical Exam Constitutional: no apparent distress Eyes: PERRL Ears, Nose, Mouth, Throat: moist mucous membranes Cardiovascular: regular rate and rhythym Respiratory: no respiratory distress, clear to auscultation Gastrointestinal: normoactive bowel sounds, soft, non-tender abdomen Skin: warm Musculoskeletal: full muscle strength Neurologic: AAOx3 Psychiatric: interacting appropriately ICD10 Worksheet Patient Problems: Problems Problem Status Onset Labile hypertension Acute
[2018-11-04] MEDS ORDERED: TEMAZEPAM 15 MG CAP PO PRN (14:44)
[2018-11-04] MEDS ORDERED: NITROGLYCERIN 0.4 MG BTL SL PRN (14:44)
[2018-11-04] MEDS ORDERED: diphenhydrAMINE 25 MG CAP PO PRN (19:25)
[2018-11-04] MEDS: FAMOTIDINE 20 MG TAB PO SCH (20:06)
[2018-11-04] MEDS: QUEtiapine FUMARATE 200 MG TAB PO SCH (20:07)
[2018-11-05 04:19] LABS: PLATELET COUNT 166 10^3/uL (150-400)
[2018-11-05 04:28] LABS: INR 0.97 (0.83-1.16); PROTIME(PATIENT) 13.1 SEC (12.0-15.0)
[2018-11-05] MEDS: LEVOTHYROXINE 125 MCG TAB PO SCH (05:11)
[2018-11-05] MEDS ORDERED: ASPIRIN EC 325 MG TAB PO ONE ×2 (06:00→08:30)
[2018-11-05] MEDS ORDERED: NS 1,000 ML IV ONE (06:00)
[2018-11-05] MEDS ORDERED: diphenhydrAMINE 25 MG CAP PO ONE ×2 (06:00→08:30)
[2018-11-05] MEDS ORDERED: DIAZEPAM 5 MG TAB PO ONE ×2 (06:00→08:30)
[2018-11-05] MEDS: FAMOTIDINE 20 MG TAB PO SCH ×2 (08:41→20:05)
[2018-11-05] MEDS ORDERED: LIDOCAINE 1% 300 MG/30 ML SDV ONE (10:21)
[2018-11-05] MEDS ORDERED: fentaNYL 100 MCG/2 ML INJ ONE (10:21)
[2018-11-05] MEDS ORDERED: IOPAMIDOL (ISOVUE-370) 150 ML BTL IV ONE (10:22)
[2018-11-05] MEDS ORDERED: VERAPAMIL 5 MG/2 ML VIAL ONE (10:22)
[2018-11-05] MEDS ORDERED: HEPARIN 10,000 UNIT/10 ML MDV (1,000 UNIT/ML) ONE (10:22)
[2018-11-05] MEDS ORDERED: MIDAZOLAM 2 MG/2 ML VIAL ONE (10:22)
--- NOTE | 2018-11-05 10:26 | PDPROPOC ---
Sedation Plan of Care Sedation Plan of Care: vital signs stable, mental status noted, patient educated of risks, benefits, alternatives, patient can tolerate sedation ASA Classification: ASA 2 Planned drugs: fentanyl, midazolam Mallampati Score: Class 1 Mallampati Reference Image: Patient passed 3-3-2 rule?: Yes
--- NOTE | 2018-11-05 10:26 | PDHPUP ---
History & Physical Update H&P update statement: This history and physical update is based on an assessment of the patient which was completed after admission or registration (within 24 hours), but prior to the surgery/procedure. H&P update: H&P reviewed & patient examined, no change in patient's condition since H&P completed
--- NOTE | 2018-11-05 11:29 | PDDXCAT ---
Diagnostic Cath Note - . Date: 11/05/18 Movement Assembly Final Inspector: Janel Indication: other (Episodes of syncope associated with an intermediate risk nuclear stress test.) - Procedure Access: right groin Procedure: left heart catheterization, coronary angiography, left ventriculogram , other (Non selective renal angiogram) - Materials Left Heart Cath size: 6F Left Heart Cath materials: standard multipack (JL4, JR4, pigtail) - Findings-Left Heart Catheterization LM: Large caliber vessel. Appropriate bifurcation into the left anterior descending and circumflex distributions. Angiographically free of disease. LAD: Large caliber transapical vessel. Large proximal 1st diagonal branch with several smaller distal diagonals. Angiographically free of disease. LCX: Moderate caliber vessel. There is a single multi branching obtuse marginal branch. After the origin of this obtuse marginal branch the circumflex becomes diminutive. This is a codominant system with a very small posterior descending artery originating from the circumflex system. The main circumflex and branch vessels are angiographically free of disease. RCA: Moderate caliber vessel. Co dominant. There is a small PDA as well as a small posterolateral cascade. This right coronary system is angiographically free of disease. LVEF: Hyperdynamic with ejection fraction in excess of 75%. Wall motion: Normal. Complications: None. Estimated blood loss: <50ml Closure method: Angioseal Assessment: Angiographically normal epicardial coronary arteries. Hyperdynamic left ventricular systolic function without wall motion abnormalities. Angiographically normal single renal arteries bilaterally. Plan: Patient will be evaluated for possible autonomic dysfunction as the etiology for the patient's labile blood pressures and episodes of syncope. Intervention: None. Patient Problems: Problems Problem Status Onset Labile hypertension Acute Text Box - Additional Text Additional Text: A non selective renal angiogram was performed. This demonstrated single renal arteries bilaterally that are angiographically free of disease.
[2018-11-05] MEDS ORDERED: ATROPINE SULFATE 1 MG/10 ML SYR IVP PRN (11:31)
--- NOTE | 2018-11-05 13:45 | HOSPPROG ---
Hospitalist Progress Note Assessment/Plan: # bradycardia/hypotension with isolated episodes of Mobitz I block, ongoing 1st degree AV block - abnormal nuc stress test. Cors clean on angiogram this am. Most suspicious for autonomic dysfunction in setting of long-standing diabetes. -neurology consult today -consider prn florinef for symptoms -suspect high vagal tone, will also pursue integrative care consult, can't hurt # GERD - not tolerating PPI with diarrhea -changed to H2 hortencia therapy -outpt gastric emptying study # DM1 - insulin # hypothyroid - synthroid # full code # dispo - cont inpt Subjective: Pt feels ok. No CP, SOB, nausea or dizziness today. Has not had significant hypotensive or bradycardic events since admission. No fevers. Taking po well. She is resting s/p cath. Objective: Vital Signs Temp Pulse Resp BP Pulse Ox 36.8 C 58 L 20 94/60 L 95 11/05/18 07:58 11/05/18 08:54 11/05/18 07:58 11/05/18 08:54 11/05/18 07:58 Laboratory Results 11/05/18 04:08 11/05/18 04:08 11/04/18 11/05/18 11/06/18 05:59 05:59 05:59 Intake Total 1630 750 400 Balance 1630 750 400 PT 13.1 SEC (12.0-15.0) 11/05/18 04:08 INR 0.97 (0.83-1.16) 11/05/18 04:08 - Physical Exam Constitutional: no apparent distress Eyes: PERRL Ears, Nose, Mouth, Throat: moist mucous membranes Cardiovascular: regular rate and rhythym Respiratory: no respiratory distress, clear to auscultation Gastrointestinal: normoactive bowel sounds, soft, non-tender abdomen Skin: warm Musculoskeletal: full muscle strength Neurologic: AAOx3 Psychiatric: interacting appropriately ICD10 Worksheet Patient Problems: Problems Problem Status Onset Labile hypertension Acute
--- NOTE | 2018-11-05 15:39 | NEUROPROG ---
Assessment: [id number] - Neurology Consult: - CC: Praveen Kelley (cardiology) consulted neurology for lightheadedness from labile blood pressure. Results placed in EMR for his review. - HPI: 11/05/18: Pt reported labile blood pressure since 2014. Her PCM noted her blood pressure was 60/47 on 11/01/18. Pt was admitted to [facility] to evaluate this on . Cardiology saw the patient and requested neurology evaluation for any neurologic etiology of her symptoms. Neurologic exam normal on 11/05/18. She does have long-standing insulin dependent diabetes so that can cause autonomic neuropathy which could be involved with labile blood pressure. Treatment for this is focused on tight control of diabetes and symptomatic treatment of any associated neuropathy. Finally, it is possible her dose of seroquel is affecting her blood pressure. I will obtain a brain MRI wo to exclude any ischemia around the autonomic control center. - PMHx: DM1, obesity, GERD Home Meds: insulin, seroquel, synthroid, esomeprazole - SHx: FHx: NC - ROS: Pt denied acute fever, total vision loss, active severe chest pain, respiratory failure, total body severe rash, total bowel/bladder incontinence, psychosis, active seizures, or active bleeding - O: VS reviewed General: Alert Eyes: Fundoscopic exam not able to visualize optic disks CV: Heart RRR, no murmur, no carotid bruit Lungs: Clear to auscultation bilaterally, no rhonchi or rales Neuro: - Mental: . Oriented x person/place/date . concentration appears normal . speech fluency/comprehension normal . memory appears normal . fund of knowledge appear intact - Cranial Nerves: . II: PERRL, VFFTC . III/IV/: EOMI, no nystagmus, normal smooth pursuits, no Ptosis . V: facial sensation intact to LT . VII: face symmetric to eye closure and smile . VIII: hearing intact to conversation . IX/X: uvula raises symmetrically . XI: SCM 5/5 B/L strength . XII: tongue protrudes midline w/nl strength - Motor: . Tone: normal tone in all 4 extremity . Strength: no pronator drift, strength 5/5 throughout (B/L delt, bic, tri, hand box car loader, hf/he, df/pf) - Reflexes: B/L bic 2/4 - Sensory: all 4 extremity intact to light touch - Coord: [id number]-zz-mple wnl, LEBRON wnl, [id number]-[id number] wnl - Gait: deferred - Labs: 11/01/18- H1AC 7.7, TSH wnl 11/05/18- CBC wnl, CMP Gluc 151H - Assessment: 1. Labile Blood pressure: Pt reported labile blood pressure since 2014. Her PCM noted her blood pressure was 60/47 on 11/01/18. Pt was admitted to [facility] to evaluate this on 11/01/18. Cardiology saw the patient and requested neurology evaluation for any neurologic etiology of her symptoms. Neurologic exam normal on 11/05/18. She does have long-standing insulin dependent diabetes so that can cause autonomic neuropathy which could be involved with labile blood pressure. Treatment for this is focused on tight control of diabetes and symptomatic treatment of any associated neuropathy. I will obtain a brain MRI wo to exclude any ischemia around the autonomic control center. Finally, it is possible her dose of seroquel is affecting blood pressure. - Plan: - Brain MRI wo, if no concerning findings then no further neurologic inpatient w /u needed - Agree with cardiology management - If symptoms of labile blood pressure are from autonomic diabetic neuropathy, treatment for this is focused on tight control of diabetes and symptomatic treatment of any associated neuropathy symptoms - Dose of seroquel could be involved with labile blood pressure - Pts PCM can always consider outpatient referral to [facility] Neurology department for specialized autonomic testing if that is felt to be helpful - I did discuss this patient with the cardiology provider, Praveen Kelley, and her hospitalist, Dr. Bui, on 11/05/18 Objective: Vital Signs Temp Pulse Resp BP Pulse Ox 36.7 C 71 15 164/76 H 95 11/05/18 13:19 11/05/18 13:19 11/05/18 13:19 11/05/18 13:19 11/05/18 13:19 Laboratory Results 11/05/18 04:08 11/05/18 04:08 11/04/18 11/05/18 11/06/18 05:59 05:59 05:59 Intake Total 1630 750 400 Balance 1630 750 400 PT 13.1 SEC (12.0-15.0) 11/05/18 04:08 INR 0.97 (0.83-1.16) 11/05/18 04:08 Allergies/Adverse Reactions: sulfamethoxazole [From Bactrim] Allergy (Intermediate, Verified 11/01/18 12:08) Hives trimethoprim [From Bactrim] Allergy (Intermediate, Verified 11/01/18 12:08) Hives
[2018-11-05] MEDS ORDERED: NS 1,000 ML IV SCH (16:30)
--- NOTE | 2018-11-05 17:37 | PDCARPN ---
Cardiology Progress Note Chief Complaint: Patient reporting losing right peripheral vision in both eyes. Assessment/Plan: Assessment: 58-year-old female with significant past history that includes diabetes, hypothyroidism, GERD, and obesity. Admitted on 11/01/2018 directly from PCPs office due to noted episodes of hypotension with associated symptoms of lightheadedness, no syncope per patient. Episodes have been happening for multiple years, feels that it gradually worsening over the last few weeks. Noting at least once or twice a week. Echocardiogram done on 11/01/2018 noting normal LV systolic function, EF 82%, no wall motion abnormalities, no significant valvular heart disease, normal pulmonary pressures. Small posterior pericardial effusion with no evidence of tap non. 12 lead EKG done on admission noting sinus rhythm with first-degree AV block, Q-waves noted in V1 and V2 questioning old anterior septal infarction. Laboratories have noted no significant abnormalities, cortisone level with cosyntropin administration within normal limits. Continues cardiac monitoring showing sinus rhythm with first-degree AV block, was noted 2 days ago of 2 brief episodes of second- degree heart block type 2, less than 1-2 beats, with no significant pauses. 11/05/2018: Coronary catheterization done today for abnormal MPI study, angiographically normal epicardial coronary arteries. Hyperdynamic LV systolic function with EF of 75%.. Patient seen by Neurology, Dr. ROLAND, appreciate consult. Planning MRI. When evaluating patient this afternoon, stating losing right peripheral vision, rest of neuro checks within normal limits. Stroke alert called, Dr. Roland notified by Dr. Bui. CT shows cerebral arthrosclerosis, otherwise normal noncontrast CT. Neck and head CTA results pending. Patient also planning to have MRI done tonight. Patient stating has being taken for CT scan, vision back to normal. Continues to have episodes of hypotension, but continues cardiac monitoring showing sinus rhythm/sinus Isaac, no other malignant arrhythmias or pauses noted. Plan: 1. Bradycardia/hypotension: Patient has been noted to have no significant pauses. Mild Isaac heart rates (sinus) in the 50s and 60s, with noted to have systolic blood pressures in the 90s with associated symptoms of lightheadedness. Noted isolated episode of second-degree heart block type 2, patient was asymptomatic. Cardiac catheterization showing normal coronary arteries. Potentially autonomic dysfunction with high vagal tone. Appreciate neurology consultation. Continue on cardiac monitoring. Currently no indication for ppm. 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 Encouraged hydration, take time with positional changes, and should have compression hose. 2. Abnormal MPI: Cardiac catheterization showing normal coronary arteries. Reports no chest pain. Patient still has a high ASCVD score with a 10% 10 year risk. Primary prevention still recommend. Pending of CT/MRI results for possible CVA/TIA, consider starting patient on anti-platelet therapy of aspirin at 81 mg p.o. Q.day, aggressive management of hyperlipidemia. 3. Hyperlipidemia: Patient states that she has been on simvastatin and other statins in the past has had adverse reactions myalgia. Total cholesterol today was 225, LDL 136, HDL 63. Recommend that we attempt to place her on Zetia 10 mg p. O. Q HS, with plans of repeating fasting lipid panel 6 weeks. 4. Right peripheral vision loss: Stroke alert called, neurology notified. CT of head showing no acute stroke. CTA of head and neck pending. MRI pending. 5. Diabetes type 1: Defer to hospitalist Medicine for management. 6. Hypothyroidism: On Synthroid. 11/05/18 17:34 Subjective: She reports no chest pressure or pain. Continues to have episodes of lightheadedness with positional changes. Denies of any palpitations. Reports no near-syncope or syncopal events. States that she loss right peripheral vision approximately 4:30 this afternoon. Reviewed/Discussed With: hospitalist (Dr Bui and Dr Roland), other (Dr Islas) Objective: Vital Signs (8 Hrs) Temp Pulse Resp BP Pulse Ox 11/05/18 16:23 36.8 C 67 92/60 L 97 11/05/18 13:19 36.7 C 71 15 164/76 H 95 Intake/Output (24 Hrs) 11/04/18 11/05/18 11/06/18 05:59 05:59 05:59 Intake Total 1630 750 400 Balance 1630 750 400 Intake: Oral (ml) 1630 750 IV Intake (ml) 400 Other: Number of Voids Toilet 1 3 0 Number of Stools Toilet 3 2 Result Diagrams: 11/05/18 04:08 11/05/18 04:08 Cardiac Labs: Cardiac Lab Results (72 Hrs) 11/03/18 11/02/18 00:01 18:18 Troponin I < 0.012 < 0.012 - Physical Exam Constitutional: no apparent distress Ears, Nose, Mouth, Throat: moist mucous membranes Cardiovascular: regular rate and rhythm, no murmurs, no rubs, no gallops, pulses symmetric bilat, No jugular vein distention, No carotid bruit Peripheral Pulses: 1+: dorsalis-pedis (R), dorsalis-pedis (L), 2+: carotid (R), carotid (L) Respiratory: clear to auscultate bilat, no crackles, no wheezes Gastrointestinal: normoactive bowel sounds Skin: warm, no edema, other (Right groin site, catheter insertion site, with no redness, swelling, drainage or ecchymosis.) Neurologic: AAOx3, other (Patient reporting loss of right peripheral vision in both eyes.) Psychiatric: cooperative ICD10 Worksheet Patient Problems: Problems Problem Status Onset Labile hypertension Acute
--- NOTE | 2018-11-05 18:09 | CPEKG ---
Test Reason : OPEN Blood Pressure : / mmHG Vent. Rate : 053 BPM Atrial Rate : 054 BPM P-R Int : 281 ms QRS Dur : 079 ms QT Int : 465 ms P-R-T Axes : -55 010 076 degrees QTc Int : 437 ms Sinus or ectopic atrial rhythm Prolonged AR interval Anteroseptal infarct, age indeterminate compared with 11/01/2018 no significant change Confirmed by Jodi Beauchamp ([id number]) on 11/05/2018 6:09:22 PM Referred By: Confirmed By:Jodi Beauchamp
[2018-11-05] MEDS ORDERED: NS BOLUS 500 ML (Wide open) IV ONE (18:30)
[2018-11-05] MEDS ORDERED: ASPIRIN 325 MG TAB PO ONE (19:15)
[2018-11-05] MEDS: CALCIUM CARB W/VIT D 500 MG TAB PO SCH (19:32)
[2018-11-05] MEDS: EZETIMIBE 10 MG TAB PO SCH (20:05)
[2018-11-05] MEDS ORDERED: QUEtiapine FUMARATE 100 MG TAB PO SCH (21:00)
[2018-11-06] MEDS: LEVOTHYROXINE 125 MCG TAB PO SCH (06:21)
[2018-11-06] MEDS: FAMOTIDINE 20 MG TAB PO SCH ×2 (08:34→20:15)
[2018-11-06] MEDS: CALCIUM CARB W/VIT D 500 MG TAB PO SCH (08:34)
[2018-11-06] MEDS: ASPIRIN EC 81 MG TAB PO SCH (08:34)
--- NOTE | 2018-11-06 09:40 | NEUROPROG ---
Assessment: [id number] - Neurology Consult: - CC: F/U for labile blood pressure - Narrative Summary: 11/05/18: Pt reported labile blood pressure since 2014. Her PCM noted her blood pressure was 60/47 on 11/01/18. Pt was admitted to [facility] to evaluate this on . Cardiology saw the patient and requested neurology evaluation for any neurologic etiology of her symptoms. Neurologic exam normal on 11/05/18. She does have long-standing insulin dependent diabetes so that can cause autonomic neuropathy which could be involved with labile blood pressure. Treatment for this is focused on tight control of diabetes and symptomatic treatment of any associated neuropathy. Finally, it is possible her dose of seroquel is affecting her blood pressure. I will obtain a brain MRI wo to exclude any ischemia around the autonomic control center. - HPI: F/U 11/06/18: Brain MRI normal, CTA head/neck also unremarkable (ordered for vision changes). Pt likely has labile blood pressure from diabetic autonomic neuropathy possibly worsened by underlying bipolar d/o. No further inpatient w/ u needed from neurology standpoint. - PMHx: DM1, obesity, GERD Home Meds: insulin, seroquel, synthroid, esomeprazole - SHx: FHx: NC - ROS: Pt denied acute fever, total vision loss, active severe chest pain, respiratory failure, total body severe rash, total bowel/bladder incontinence, psychosis, active seizures, or active bleeding - Labs: 11/01/18- H1AC 7.7, TSH wnl 11/05/18- CBC wnl, CMP Gluc 151H - Rads: 11/05/18- Brain MRI wo: normal 11/05/18- CTA head/neck: no large vessel occlusion or flow limiting stenosis - Assessment: 1. Labile Blood pressure: She does have long-standing insulin dependent diabetes so that can cause autonomic neuropathy which could be involved with labile blood pressure. Treatment for this is focused on tight control of diabetes and symptomatic treatment of any associated neuropathy. It is possible her dose of seroquel is affecting blood pressure as well. - 2. Sense of vision disturbance: CTA head/neck and brain MRI negative so unlikely to be from ischemia. Either she is likely getting it from presyncope from labile blood pressure or possibly from anxiety from underlying bipolar d/ o. Agree with cardiology treatment. Pt should establish with outpatient psychiatrist to manage seroquel dosing and any symptoms related to psychiatric disease. - Plan: - no further neurologic inpatient w/u needed, neurology will sign off - Agree with cardiology management - If symptoms of labile blood pressure are from autonomic diabetic neuropathy, treatment for this is focused on tight control of diabetes and symptomatic treatment of any associated neuropathy symptoms - Dose of seroquel could be involved with labile blood pressure - Pts PCM can always consider outpatient referral to [facility] Neurology department for specialized autonomic testing if that is felt to be helpful - 35 min spent with patient, majority of time spent counseling on symptoms and treatment plan. Objective: Vital Signs Temp Pulse Resp BP Pulse Ox 36.7 C 66 14 77/52 L 95 11/06/18 07:58 11/06/18 07:58 11/06/18 07:58 11/06/18 07:58 11/06/18 07:58 Laboratory Results 11/05/18 04:08 11/05/18 04:08 11/05/18 11/06/18 11/07/18 05:59 05:59 05:59 Intake Total 750 1900 Balance 750 1900 PT 13.1 SEC (12.0-15.0) 11/05/18 04:08 INR 0.97 (0.83-1.16) 11/05/18 04:08 Allergies/Adverse Reactions: sulfamethoxazole [From Bactrim] Allergy (Intermediate, Verified 11/01/18 12:08) Hives trimethoprim [From Bactrim] Allergy (Intermediate, Verified 11/01/18 12:08) Hives
--- NOTE | 2018-11-06 10:37 | HOSPPROG ---
Hospitalist Progress Note Assessment/Plan: # bradycardia/hypotension with isolated episodes of Mobitz I block, ongoing 1st degree AV block - abnormal nuc stress test. Cors clean on angiogram this am. Most suspicious for autonomic dysfunction in setting of long-standing diabetes vs seroquel side effect (can cause BP lability) -neurology consulted, refer to outpt [facility] neurology clinic for further autonomic testing -consider prn florinef for symptoms -suspect high vagal tone, will also pursue integrative care consult, can't hurt -decrease seroquel to 50 hs (was on 200 hs, took 100 hs last night, had BP 70s/40s this am) -compression stockings ordered -30 day outpt event monitor is arranged by cards, outpt f/u with [facility] # Vision changes - had symptoms c/w hemianopsia yesterday afternoon, ~6 hrs post -cath. No further symptoms. -CTA head and neck neg -brain MRI neg # GERD - not tolerating PPI with diarrhea -changed to H2 hortencia therapy -outpt gastric emptying study # DM1 - has insulin pump, bg lowish this am 74 -she will decrease the overnight basal rate from 1.0/hr to 0.8/hr # Bipolar disorder - decreasing seroquel as above -will need new psychiatrist (PCP has been managing psych meds recently) # hypothyroid - synthroid # full code # dispo - cont inpt, d/c home when has 24 hrs of stable VS and symptoms Subjective: Pt feels well this am, though notes low BG and low BP, felt a little woozy. No CP or SOB. No dizziness. No vision changes this am. Stroke alert yesterday afternoon for vision changes, w/u neg. Objective: Vital Signs Temp Pulse Resp BP Pulse Ox 36.7 C 66 14 77/52 L 95 11/06/18 07:58 11/06/18 07:58 11/06/18 07:58 11/06/18 07:58 11/06/18 07:58 Laboratory Results 11/05/18 04:08 11/05/18 04:08 11/05/18 11/06/18 11/07/18 05:59 05:59 05:59 Intake Total 750 1900 Balance 750 1900 PT 13.1 SEC (12.0-15.0) 11/05/18 04:08 INR 0.97 (0.83-1.16) 11/05/18 04:08 ICD10 Worksheet Patient Problems: Problems Problem Status Onset Labile hypertension Acute
--- NOTE | 2018-11-06 15:46 | ASMTCMCOM ---
CM Note CM Note Notes: CM met with pt and and provided list of psychiatrists that accept insurance. Pt was appreciative. She reports she has been stressed over her medical needs for years and finally feels like her needs are being addressed. She is aware of medical follow-up appts she will need and is agreeable to make appointments and did not need assistance. I anticipate pt will be discharged independently. CM available if needs arise. Plan: Independent. Date Signed: 11/06/2018 03:45 PM Electronically Signed By:JOLENE Ibarra
--- NOTE | 2018-11-06 16:33 | PDCARPN ---
Cardiology Progress Note Chief Complaint: Reports ongoing lightheadedness Assessment/Plan: Assessment: 58-year-old female with significant past history that includes diabetes, hypothyroidism, GERD, and obesity. Admitted on 11/01/2018 directly from PCPs office due to noted episodes of hypotension with associated symptoms of lightheadedness, no syncope per patient. Episodes have been happening for multiple years (2014), feels that it gradually worsening over the last few weeks. Noting at least once or twice a week. Echocardiogram done on 11/01/2018 noting normal LV systolic function, EF 82%, no wall motion abnormalities, no significant valvular heart disease, normal pulmonary pressures. Small posterior pericardial effusion with no evidence of tap non. 12 lead EKG done on admission noting sinus rhythm with first-degree AV block, Q-waves noted in V1 and V2 questioning old anterior septal infarction. Laboratories have noted no significant abnormalities, cortisone level with cosyntropin administration within normal limits. Continues cardiac monitoring showing sinus rhythm with first-degree AV block, was noted 2 days ago of 2 brief episodes of second- degree heart block type 2, less than 1-2 beats, with no significant pauses. 11/06/2018: Patient reporting feeling better today. Continues have episodes of lightheadedness. Noted to be hypotensive. No malignant arrhythmias noted on monitoring. Denying of any chest pressure or pain. Catheter insertion site, right groin site, with no redness, swelling, infection or bleeding. Plan: 1. Bradycardia/hypotension: No significant pauses overnight. Remains sinus rhythm with first-degree AV block. Noted episodes of bradycardia. Continues to have episodes of hypotension with systolic down into the 70s. No malignant arrhythmias noted. Structurally normal heart by echo. Neurology consultation appreciated. Suspicious for autonomic dysfunction a in the setting of long- standing diabetes versus and seroquel side effect. Markedly plan on patient doing is the 30 day monitor as an outpatient. Compression stockings, her of [facility] decreasing patient's seroquel. Consider her p.r.n. florinef for symptoms. 2. Abnormal MPI: Cardiac catheterization showing normal coronary arteries. Reports no chest pain. Patient still has a high ASCVD score with a 10% 10 year risk. Primary prevention still recommend. Started on anti-platelet therapy of aspirin at 81 mg p.o. Q.day. 3. Hyperlipidemia: Patient states that she has been on simvastatin and other statins in the past has had adverse reactions myalgia. Total cholesterol today was 225, LDL 136, HDL 63. Recommend that we attempt to place her on Zetia 10 mg p. O. Q HS, with plans of repeating fasting lipid panel 6 weeks. 4. Right peripheral vision loss: Resolved, CTA of the head and neck and brain MRI negative. Started on aspirin therapy 81 mg p.o. Q.day. 5. Diabetes type 1: Defer to hospitalist Medicine for management. 6. Hypothyroidism: On Synthroid. 11/06/18 16:29 Subjective: Reports no chest pressure or pain. States feeling better today than in the past. Reports no further episodes of vision loss. Denies of any palpitations reports no orthopnea, PND. Reviewed/Discussed With: hospitalist (Dr Soliz), other (Dr Islas) Objective: Vital Signs (8 Hrs) Temp Pulse Resp BP Pulse Ox 11/06/18 15:11 36.7 C 66 18 148/82 H 96 11/06/18 11:24 36.8 C 56 L 18 73/41 L 95 11/06/18 08:31 74/42 L 11/06/18 08:30 75/45 L Intake/Output (24 Hrs) 11/05/18 11/06/18 11/07/18 05:59 05:59 05:59 Intake Total 750 1900 Balance 750 1900 Intake: Oral (ml) 750 1000 IV Intake (ml) 400 IV Infused (ml) 500 Ns 500 ml @ Wide Open IV 500 ONCE ONE Rx#:[id number] Other: Intake Quantity Yes Sufficient Number of Voids Toilet 3 1 Number of Stools Toilet 2 Result Diagrams: 11/05/18 04:08 11/05/18 04:08 - Physical Exam Constitutional: no apparent distress Ears, Nose, Mouth, Throat: moist mucous membranes Cardiovascular: regular rate and rhythm, no murmurs, no rubs, no gallops, No jugular vein distention Peripheral Pulses: 1+: dorsalis-pedis (R), dorsalis-pedis (L), 2+: carotid (R), carotid (L) Respiratory: clear to auscultate bilat, no crackles, no wheezes Gastrointestinal: normoactive bowel sounds, no tenderness Skin: warm, no edema Neurologic: AAOx3 Psychiatric: cooperative, interactive, following commands ICD10 Worksheet Patient Problems: Problems Problem Status Onset Labile hypertension Acute
[2018-11-06] MEDS: QUEtiapine FUMARATE 50 MG TAB PO SCH (20:15)
[2018-11-06] MEDS: EZETIMIBE 10 MG TAB PO SCH (20:15)
[2018-11-07] MEDS: LEVOTHYROXINE 125 MCG TAB PO SCH (06:03)
[2018-11-07] MEDS: FAMOTIDINE 20 MG TAB PO SCH ×2 (09:04→19:38)
[2018-11-07] MEDS: CALCIUM CARB W/VIT D 500 MG TAB PO SCH (09:05)
[2018-11-07] MEDS: ASPIRIN EC 81 MG TAB PO SCH (09:05)
--- NOTE | 2018-11-07 16:26 | PDCARPN ---
Cardiology Progress Note Chief Complaint: Patient reports continuation of getting lightheadedness sitting or standing. Assessment/Plan: Assessment: 58-year-old female with significant past history that includes diabetes, hypothyroidism, GERD, and obesity. Admitted on 11/01/2018 directly from PCPs office due to noted episodes of hypotension with associated symptoms of lightheadedness, no syncope per patient. Episodes have been happening for multiple years (2014), feels that it gradually worsening over the last few weeks. Noting at least once or twice a week. Echocardiogram done on 11/01/2018 noting normal LV systolic function, EF 82%, no wall motion abnormalities, no significant valvular heart disease, normal pulmonary pressures. Small posterior pericardial effusion with no evidence of tap non. 12 lead EKG done on admission noting sinus rhythm with first-degree AV block, Q-waves noted in V1 and V2 questioning old anterior septal infarction. Laboratories have noted no significant abnormalities, cortisone level with cosyntropin administration within normal limits. Continues cardiac monitoring showing sinus rhythm with first-degree AV block, was noted 2 days ago of 2 brief episodes of second- degree heart block type 2, less than 1-2 beats, with no significant pauses. 11/07/2018: Patient continues to have episodes of lightheadedness. She has been noted to have episodes of hypotension, with systolics down into the 80s spontaneously. She remains in sinus rhythm with rates in the 60s and 70s. 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 She reports no chest pain or pressure. Also has been noted to have systolic blood pressure up to 175 mm Hg. Plan: 1. Bradycardia/hypotension: No significant pauses overnight. Remains sinus rhythm with first-degree AV block. Noted episodes of bradycardia. Continues to have episodes of hypotension with systolic down into the 70s. No malignant arrhythmias noted. Structurally normal heart by echo. Neurology consultation appreciated. Suspicious for autonomic dysfunction a in the setting of long- standing diabetes versus and seroquel side effect. Markedly plan on patient doing is the 30 day monitor as an outpatient. Compression stockings, Hospital Services decreasing patient's seroquel. If continuation of lightheadedness despite reducing seroquel, will place patient low-dose Florinef. Consideration as an outpatient, patient following up with [facility] Neurology department for specialized autonomic testing 2. Abnormal MPI: Cardiac catheterization showing normal coronary arteries. Reports no chest pain. Patient still has a high ASCVD score with a 10% 10 year risk. Primary prevention still recommend. Started on anti-platelet therapy of aspirin at 81 mg p.o. Q.day. 3. Hyperlipidemia: Patient states that she has been on simvastatin and other statins in the past has had adverse reactions myalgia. Total cholesterol today was 225, LDL 136, HDL 63. Recommend that we attempt to place her on Zetia 10 mg p. O. Q HS, with plans of repeating fasting lipid panel 6 weeks. 4. Right peripheral vision loss: Resolved, CTA of the head and neck and brain MRI negative. Started on aspirin therapy 81 mg p.o. Q.day. 5. Diabetes type 1: Defer to hospitalist Medicine for management. 6. Hypothyroidism: On Synthroid. 11/07/18 16:23 Subjective: She reports no chest pressure or pain. Reports no shortness of breath. Denies of any orthopnea, PND, near-syncope or syncopal events. Reviewed/Discussed With: hospitalist (Dr Chavez), other (Dr Islas) Objective: Vital Signs (8 Hrs) Temp Pulse Resp BP Pulse Ox 11/07/18 11:56 36.9 C 71 14 153/89 H 94 11/07/18 09:06 70 83/45 L Intake/Output (24 Hrs) 11/06/18 11/07/18 11/08/18 05:59 05:59 05:59 Intake Total 6341 115 8647 Balance 2748 799 2633 Intake: Oral (ml) 2974 133 1166 IV Intake (ml) 400 IV Infused (ml) 500 Ns 500 ml @ Wide Open IV 500 ONCE ONE Rx#:[id number] Other: Intake Quantity Yes Yes Sufficient Number of Voids Toilet 1 3 3 Result Diagrams: 11/05/18 04:08 11/05/18 04:08 - Physical Exam Constitutional: no apparent distress Ears, Nose, Mouth, Throat: moist mucous membranes Cardiovascular: regular rate and rhythm, no murmurs, no rubs, pulses symmetric bilat, No jugular vein distention Peripheral Pulses: 1+: dorsalis-pedis (R), dorsalis-pedis (L), 2+: carotid (R), carotid (L) Respiratory: clear to auscultate bilat Gastrointestinal: normoactive bowel sounds Skin: warm, no edema Neurologic: AAOx3 Psychiatric: cooperative, interactive, following commands ICD10 Worksheet Patient Problems: Problems Problem Status Onset Labile hypertension Acute
--- NOTE | 2018-11-07 16:35 | HOSPPROG ---
Hospitalist Progress Note Assessment/Plan: bradycardia/hypotension with isolated episodes of Mobitz I block, ongoing 1st degree AV block -thought to be due to autonomic dysfunction. cardiac workup negative this admission. case discussed with cardiology who has scheduled her for a event monitor and follow up with them. I discussed this case with endo as well, who says hx consistent with autonomic dysfunction in setting of longstanding diabetes. -neurology consulted, refer to outpt [facility] neurology clinic for further autonomic testing -ROMAIN brenda added back as she is still hypotensive today. -compression stockings ordered -30 day outpt event monitor is arranged by cards, outpt f/u with [facility] changes - had symptoms c/w hemianopsia yesterday afternoon, ~6 hrs post- cath. No further symptoms. -CTA head and neck neg -brain MRI neg GERD - not tolerating PPI with diarrhea -changed to H2 hortencia therapy -outpt gastric emptying study #DM1 - has insulin pump, bg lowish this am 74 -she will decrease the overnight basal rate from 1.0/hr to 0.8/hr Bipolar disorder - decreasing seroquel as above -will need new psychiatrist (PCP has been managing psych meds recently) hypothyroid - synthroid full code dispo - cont inpt, hopeful in next day. need 24 hours of no hypotension. Subjective: patient anxious for discharge. one episode of faintness this morning. No other complaint.s Objective: Vital Signs Temp Pulse Resp BP Pulse Ox 36.9 C 71 14 153/89 H 94 11/07/18 11:56 11/07/18 11:56 11/07/18 11:56 11/07/18 11:56 11/07/18 11:56 Laboratory Results 11/05/18 04:08 11/05/18 04:08 11/06/18 11/07/18 11/08/18 05:59 05:59 05:59 Intake Total 1457 870 8105 Balance 5991 295 2518 PT 13.1 SEC (12.0-15.0) 11/05/18 04:08 INR 0.97 (0.83-1.16) 11/05/18 04:08 - Physical Exam Constitutional: no apparent distress, appears nourished, not in pain Eyes: PERRL, anicteric sclera, EOMI Ears, Nose, Mouth, Throat: moist mucous membranes, hearing normal, ears appear normal, no oral mucosal ulcers Cardiovascular: regular rate and rhythym, no murmur, rub, or gallop Respiratory: no respiratory distress, no rales or rhonchi, clear to auscultation Gastrointestinal: normoactive bowel sounds, soft, non-tender abdomen, no palpable masses Genitourinary: no bladder fullness, no bladder tenderness, no renal bruits Skin: no rashes or abrasions, no fluctuance, no induration Musculoskeletal: full muscle strength, no muscle tenderness, normal joint ROM Neurologic: AAOx3, sensation intact bilaterally Psychiatric: interacting appropriately, not anxious, not encephalopathic, thought process linear Lymph, Heme, Immunologic: no cervical LAD, no supraclavicular LAD ICD10 Worksheet Patient Problems: Problems Problem Status Onset Labile hypertension Acute
[2018-11-07] MEDS: FLUDROCORTISONE ACETATE 0.1 MG TAB PO SCH (16:59)
[2018-11-07] MEDS: EZETIMIBE 10 MG TAB PO SCH (19:38)
[2018-11-07] MEDS: QUEtiapine FUMARATE 50 MG TAB PO SCH (19:38)
[2018-11-08] MEDS: LEVOTHYROXINE 125 MCG TAB PO SCH (06:29)
[2018-11-08 07:40] VITALS: BP 133/80
[2018-11-08] MEDS: ASPIRIN EC 81 MG TAB PO SCH (09:19)
[2018-11-08] MEDS: CALCIUM CARB W/VIT D 500 MG TAB PO SCH (09:19)
[2018-11-08] MEDS: FLUDROCORTISONE ACETATE 0.1 MG TAB PO SCH (09:19)
[2018-11-08] MEDS: FAMOTIDINE 20 MG TAB PO SCH (09:19)
[2018-11-08] MEDS ORDERED: METOPROLOL TARTRATE 5 MG/5 ML INJ IVP ONE (12:07)
--- NOTE | 2018-11-08 14:20 | ASDISCHSUM ---
Discharge Information Plan Status:Home with No Needs Medically Cleared to Leave:11/07/2018 Discharge Date:11/07/2018 CM D/C Disposition:Home, Routine, Self-Care ADT D/C Disposition:Home, Routine, Self-Care Projected Discharge Date:11/07/2018 Transportation at D/C: Discharge Delay Reason: Follow-Up Date:11/07/2018 Discharge Slot: Final Diagnosis: Placement Information Patient Contact Information Contact Name:BRODY Relationship: Address:[address] City:[place] Alternate Phone: [facility]/Zip Code:[place] [address] Email: Financial Information Financial Class:BCOP Primary Plan Desc: OUT OF [facility] Primary Plan Number:[id number] Secondary Plan Desc: Secondary Plan Number: Assessment Information LACE LACE Length of stay for Answers: 4-6 days current admission Acuity / Level of Answers: Yes Care: Did the patient have an inpatient admission? Comorbidities - select Answers: Diabetes (uncontrolled or all that apply controlled) # of Emergency department Answers: 1-2 visits in the last 6 months Score: 9 Date Signed: 11/08/2018 02:17 PM Electronically Signed By:Rosemarie Lombardi RN [facility] CM Progress Note CM Note CM Note Notes: 11/03/2018 Case Management Note Pt admitted for bradycardia/hypotension with Mobitz I block, 1st degree AV block, GERD, DM1, and hypothyroid. Lexiscan stress test has been ordered. There are no therapy evals ordered at this time. There are no case management d/c needs identified d/t pt age, marital status, employment status and independence with ADLs. Case Management d/c poc: Independent with follow up as directed. Case Management available if needs change. Date Signed: 11/03/2018 01:58 PM Electronically Signed By:Rosemarie Lombardi RN [facility] CM Progress Note CM Note CM Note Notes: CM met with pt and and provided list of psychiatrists that accept insurance. Pt was appreciative. She reports she has been stressed over her medical needs for years and finally feels like her needs are being addressed. She is aware of medical follow-up appts she will need and is agreeable to make appointments and did not need assistance. I anticipate pt will be discharged independently. CM available if needs arise. Plan: Independent. Date Signed: 11/06/2018 03:45 PM Electronically Signed By:JOLENE Ibarra Case Management Discharge Plan Note Case Management Discharge Discharge Order Complete? Answers: Yes Patient to Obtain Answers: via Family Medications Transportation Arranged Answers: Family/Friends Discharge Comments Notes: 11/08/2018 Case Management Note Pt discharged independent with follow up as directed. Date Signed: 11/08/2018 02:19 PM Electronically Signed By:Rosemarie Lombardi RN Intervention Information
--- NOTE | 2018-11-08 17:19 | PDDCSUM ---
Discharge Summary Discharge Summary: The patient is a 58-year-old female with past medical history of diabetes, bipolar disorder, and hypothyroid who was admitted with hypotension but with intermittent hypertensive urgency. Cardiology was consulted as patient had a Mobitz type 1 av block. Her her symptoms were ultimately thought to be due to autonomic dysfunction in the setting of longstanding diabetes. She was started on Florinef for hypotension which seemed to be effective in reducing her hypotensive episodes. She had no acute events on telemetry. Endocrinology was consulted who recommended Jesus sheppard Florinef and close monitoring. She was also set up to have a Holter monitor placed with follow-up with Cardiology afterwards. She was also referred to Neurology at [facility] for further evaluation and treatment of her autonomic dysfunction. On the day of discharge she was in good condition and had no hypotensive or hypertensive episodes for over 24 hr Discharge diagnosis Autonomic dysfunction Hypotension Hypertension Bipolar disorder Diabetes mellitus Hypothyroid New medications Florinef 0.1 mg daily Follow-up Cardiology Neurology Endocrinology Over 35 min were spent on the discharge of this patient including discharge planning arranging follow-up, discussing discharge plan with family and arranging medications
== END 2018-11-08 14:30 | disposition home or self-care (01) | DRG 74 ==
LOC: F3E 15:04 → OBSVTOIN 11-02 15:15 → F2W 11-02 16:15
PROVIDERS: ADMIT Family Medicine; ATTEND Family Medicine
PROC: B2111ZZ Fluoroscopy of Multiple Coronary Arteries using Low Osmolar Contrast (ICD-10-PCS; principal; 2018-11-05)
PROC: 4A023N7 Measurement of Cardiac Sampling and Pressure, Left Heart, Percutaneous Approach (ICD-10-PCS; principal; 2018-11-05)
PROC: B2151ZZ Fluoroscopy of Left Heart using Low Osmolar Contrast (ICD-10-PCS; principal; 2018-11-05)
DX: E10.43 Type 1 diabetes mellitus with diabetic autonomic (poly)neuropathy (principal); E10.319 Type 1 diabetes mellitus with unspecified diabetic retinopathy without macular edema; I44.0 Atrioventricular block, first degree; E86.9 Volume depletion, unspecified; F31.9 Bipolar disorder, unspecified; E03.9 Hypothyroidism, unspecified; K21.9 Gastro-esophageal reflux disease without esophagitis; E66.9 Obesity, unspecified; Z79.84 Long term (current) use of oral hypoglycemic drugs; Z87.891 Personal history of nicotine dependence
CPT/HCPCS: 84484-ER; 97161-GP; A9500; C1760; G0378; J0461; J0834; J1644; J2250; J2785; J3010; Q9967

== ENCOUNTER → 2018-12-05 | Outpatient (CLI) | payer BC | LOC: FIMAGING 09:22 | PROVIDERS: ATTEND Internal Medicine Gastroenterology | DX: R13.14 Dysphagia, pharyngoesophageal phase (principal) | CPT/HCPCS: 78264; A9541 ==

== ENCOUNTER 2019-02-12 09:23 | Observation (INO) | payer BC ==
[2019-02-12] MEDS ORDERED: BACITRACIN IRRIGATION/NS 50,000 UNITS/1,000 ML BTL IRR ONE (09:27)
[2019-02-12] MEDS ORDERED: diphenhydrAMINE 25 MG CAP PO ONE (09:27)
[2019-02-12] MEDS ORDERED: ceFAZolin 2 GM/DEXTROSE 100 ML IV ONE (09:27)
[2019-02-12] MEDS ORDERED: DIAZEPAM 5 MG TAB PO ONE (09:27)
[2019-02-12] MEDS ORDERED: NS 1,000 ML IV ONE (09:27)
[2019-02-12] MEDS ORDERED: LIDOCAINE 1% 300 MG/30 ML SDV ONE (10:50)
[2019-02-12] MEDS ORDERED: IOPAMIDOL (ISOVUE-300) 50 ML VIAL ONE (10:50)
[2019-02-12] MEDS ORDERED: fentaNYL 100 MCG/2 ML INJ ONE ×2 (10:50→11:53)
[2019-02-12] MEDS ORDERED: MIDAZOLAM 2 MG/2 ML VIAL ONE ×5 (10:50→12:24)
[2019-02-12] MEDS ORDERED: LIDO/EPI 1% **for epidural** 30 ML SDV ONE (10:51)
[2019-02-12] MEDS ORDERED: BUPIVACAINE 0.5% 30 ML SDV ONE (10:51)
[2019-02-12] MEDS ORDERED: GLUCAGON HCL 1 MG VIAL IV PRN (15:30)
[2019-02-12] MEDS ORDERED: valACYclovir 500 MG TAB PO PRN (15:30)
[2019-02-12] MEDS ORDERED: INSULIN PUMP, PATIENT OWN 1 EA MISC SCH (15:30)
[2019-02-12] MEDS: MIDODRINE HCL 5 MG TAB PO SCH (15:59)
[2019-02-12] MEDS: CALCIUM CARB W/VIT D 500 MG TAB PO SCH ×2 (15:59→21:55)
[2019-02-12] MEDS: metFORMIN HCL 500 MG TAB PO SCH (17:41)
[2019-02-12] MEDS ORDERED: EZETIMIBE 10 MG TAB PO SCH (21:00)
[2019-02-12] MEDS: FAMOTIDINE 20 MG TAB PO SCH (21:55)
[2019-02-13] MEDS ORDERED: LEVOTHYROXINE 112 MCG TAB PO SCH (06:00)
[2019-02-13] MEDS: MIDODRINE HCL 5 MG TAB PO SCH ×2 (07:39→12:41)
[2019-02-13] MEDS: FLUDROCORTISONE ACETATE 0.1 MG TAB PO SCH ×2 (07:41→12:42)
[2019-02-13] MEDS: FAMOTIDINE 20 MG TAB PO SCH (07:43)
[2019-02-13] MEDS: CALCIUM CARB W/VIT D 500 MG TAB PO SCH (10:21)
[2019-02-13] MEDS: metFORMIN HCL 500 MG TAB PO SCH (10:21)
[2019-02-15] MEDS ORDERED: ESTRADIOL 42.5 GM CRTUBE VG SCH (08:00)
== END 2019-02-13 12:53 | disposition home or self-care (01) ==
DX: R00.1 Bradycardia, unspecified (principal); G90.1 Familial dysautonomia [Riley-Day]; I10 Essential (primary) hypertension; E78.5 Hyperlipidemia, unspecified; E10.9 Type 1 diabetes mellitus without complications; E03.9 Hypothyroidism, unspecified; K21.9 Gastro-esophageal reflux disease without esophagitis
CPT/HCPCS: 33208; 71045; 71046; 97116; 97161; G0378